=== PATIENT | male | born 1940 | race Caucasian/White ===

== ENCOUNTER 2024-07-14 12:49 | Observation (INO) ==
[2024-07-14] MEDS: Lactated Ringers 1000 ml BAG IV.FLUID IV ONE ×2 (13:15→16:23)
[2024-07-14] MEDS: Piperacillin/Tazobac 3.375 BAG 3.375 GM/100 ML BAG IV ONE (13:17)
[2024-07-14 13:36] LABS: Hematocrit 39.7 % (38-53); Hemoglobin 13.7 g/dL (13.2-16.3); Mean Corpuscular Hgb Conc 34.4 g/dL (31-36); Mean Corpuscular Volume 93.1 fL (80-97); Mean Platelet Volume 8.8 fL (7.5-11.2); Platelet Count 75 10^3/uL (150-450); Red Blood Count 4.27 10^6/uL (4.06-5.63); Red Cell Distribution Width 13.9 % (12-17); White Blood Count 6.1 10^3/uL (3.6-10.2)
[2024-07-14 13:53] LABS: Activated Partial Thrombo Time 29.4 seconds (26.0-38.0); INR 1.1 (0.85-1.14)
[2024-07-14 14:39] LABS: Albumin 3.4 g/dL (3.2-5.2); Albumin/Globulin Ratio 1.2 (1-3); C Reactive Protein 153.16 mg/L (<8.01); Creatinine, Serum 1.49 mg/dL (0.67-1.17); Globulin 2.8 g/dL (2-4); Potassium 4.1 mmol/L (3.5-5.0); Total Bilirubin 0.7 mg/dL (0.2-1.0); Total Protein 6.2 g/dL (6.4-8.9); eGFR CKD-EPI 46.9 (>60)
[2024-07-14 15:36] LABS: High Sensitivity Troponin 1 Hr 7 pg/mL (<20)
[2024-07-14 15:43] LABS: ABS Lymphocytes 2.6 10^3/uL (1.0-4.8); ABS Monocytes 0.3 10^3/uL (0.0-1.1); ABS Neutrophils 3.2 10^3/uL (1.5-7.6); ABS Nucleated RBC 0.02 10^3/ul; Lymphocyte % 41.9 %; Nucleated Red Blood Cells % 0.4 %/100WBC (0.0-0.8); RBC Morphology Normal (Normal)
[2024-07-14] MEDS: CALCIUM GLUCONATE 1GM/50ML NS 1 GM/50 ML BAG IV ONE (16:23)
[2024-07-14 16:38] LABS: RBC Parasite Smear No Parasites Seen (No Parasite)
[2024-07-14 16:48] LABS: TSH Ultra Thyroid Stim Horm 1.36 mcIU/mL (0.34-5.60)
[2024-07-14] MEDS: DOXYcycline 100 MG in NS 0.9% 250 ml 250 ML IVPB ONE (17:26)
[2024-07-14 18:13] LABS: Urine Appearance Clear; Urine Bilirubin Negative (Negative); Urine Blood 1+ (Negative); Urine Color Light-Yellow; Urine Glucose Negative (Negative); Urine Ketones Negative (Negative); Urine Nitrite Negative (Negative); Urine Protein Negative (Negative); Urine Specific Gravity 1.008 (1.002-1.030); Urine Urobilinogen Negative (Negative); Urine pH 5.5 (5.0-8.0)
[2024-07-14 18:14] LABS: Urine Bacteria Absent /HPF (Absent); Urine Red Blood Cell Trace(0-2/hpf) /HPF (0-Trace); Urine White Blood Cell Trace(0-5/hpf) /HPF (0-Trace)
[2024-07-15 02:43] LABS: Magnesium 1.9 mg/dL (1.9-2.7)
[2024-07-15] MEDS ORDERED: DOXYcycline 100 MG in NS 0.9% 250 ml 250 ML IVPB SCH (05:00)
[2024-07-15] MEDS: DOXYcycline 100 MG in NS 0.9% 250 ml 250 ML IVPB SCH (05:55)
[2024-07-15 08:02] LABS: Magnesium 1.8 mg/dL (1.9-2.7); Phosphorus 2.5 mg/dL (2.5-5.0)
[2024-07-15 08:03] LABS: Calcium 7.4 mg/dL (8.6-10.3); Creatinine, Serum 0.93 mg/dL (0.67-1.17); Potassium 4.1 mmol/L (3.5-5.0); eGFR CKD-EPI 82.5 (>60)
[2024-07-15 08:55] LABS: ABS Lymphocytes 3.6 10^3/uL (1.0-4.8); ABS Monocytes 0.3 10^3/uL (0.0-1.1); ABS Neutrophils 1.4 10^3/uL (1.5-7.6); ABS Nucleated RBC 0.01 10^3/ul; Eosinophil % 0.2 %; Giant Platelets Present; Hematocrit 34.3 % (38-53); Hemoglobin 12.1 g/dL (13.2-16.3); Lymphocyte % 67.5 %; Mean Corpuscular Hemoglobin 32.2 pg (27-33); Mean Corpuscular Hgb Conc 35.2 g/dL (31-36); Mean Corpuscular Volume 91.5 fL (80-97); Mean Platelet Volume 9.1 fL (7.5-11.2); Nucleated Red Blood Cells % 0.3 %/100WBC (0.0-0.8); Platelet Count 64 10^3/uL (150-450); RBC Morphology Normal (Normal); Red Blood Count 3.75 10^6/uL (4.06-5.63); White Blood Count 5.4 10^3/uL (3.6-10.2)
[2024-07-15 12:50] LABS: HIV 4th Generation Nonreactive (Nonreactive)
[2024-07-15] MEDS ORDERED: Sulfur Hexaflouride MICROSPHR 25 MG VIAL IV PRN (15:35)
[2024-07-15 17:25] LABS: High Sensitivity Troponin 1 Hr 6 pg/mL (<20)
[2024-07-15 19:19] LABS: High Sensitivity Troponin 3 Hr 5 pg/mL (<20)
[2024-07-15] MEDS: Iodixanol 320 (CONTRAST) 100 ML SDV IV ONE (19:47)
[2024-07-16 07:13] LABS: Hemoglobin 11.6 g/dL (13.2-16.3); Mean Corpuscular Hemoglobin 32.2 pg (27-33); Mean Corpuscular Volume 91.8 fL (80-97); Red Cell Distribution Width 14.4 % (12-17); White Blood Count 5.6 10^3/uL (3.6-10.2)
[2024-07-16 07:28] LABS: Calcium 7.3 mg/dL (8.6-10.3); Creatinine, Serum 0.95 mg/dL (0.67-1.17); Magnesium 1.8 mg/dL (1.9-2.7); Potassium 4.4 mmol/L (3.5-5.0); eGFR CKD-EPI 80.4 (>60)
[2024-07-16 09:35] LABS: Mean Platelet Volume 8.9 fL (7.5-11.2); Platelet Count 82 10^3/uL (150-450)
[2024-07-16 10:08] LABS: ABS Lymphocytes 3.7 10^3/uL (1.0-4.8); ABS Monocytes 0.5 10^3/uL (0.0-1.1); ABS Neutrophils 1.4 10^3/uL (1.5-7.6); ABS Nucleated RBC 0.01 10^3/ul; Eosinophil % 0.4 %; Lymphocyte % 65.2 %; Nucleated Red Blood Cells % 0.1 %/100WBC (0.0-0.8); RBC Morphology Normal (Normal)
[2024-07-16] MEDS: Magnesium Sulfate 2 gm BAG 2 GM/50 ML BAG IVPB ONE (11:50)
[2024-07-17 08:00] LABS: Hematocrit 35.4 % (38-53); Hemoglobin 12.4 g/dL (13.2-16.3); Mean Corpuscular Hemoglobin 32.1 pg (27-33); Mean Corpuscular Hgb Conc 34.9 g/dL (31-36); Mean Corpuscular Volume 91.8 fL (80-97); Platelet Count 124 10^3/uL (150-450); Red Blood Count 3.86 10^6/uL (4.06-5.63); Red Cell Distribution Width 14.3 % (12-17)
[2024-07-17 08:54] LABS: Calcium 7.7 mg/dL (8.6-10.3); Creatinine, Serum 1.01 mg/dL (0.67-1.17); Potassium 4.3 mmol/L (3.5-5.0); eGFR CKD-EPI 74.7 (>60)
[2024-07-17 09:48] LABS: ABS Lymphocytes 3.7 10^3/uL (1.0-4.8); ABS Monocytes 0.4 10^3/uL (0.0-1.1); ABS Neutrophils 1.8 10^3/uL (1.5-7.6); ABS Nucleated RBC 0.02 10^3/ul; Eosinophil % 0.6 %; Nucleated Red Blood Cells % 0.3 %/100WBC (0.0-0.8)
[2024-07-17 13:34] VITALS: BP 144/85
[2024-07-17 15:17] LABS: Anaplasma phagocytophilum Positive (Negative); B. miyamotoi PCR, B Negative (Negative); Babesia divergens/MO-1 Negative (Negative); Babesia ducani Negative (Negative); Ehrlichia chaffeensis Negative (Negative); Ehrlichia ewingii/canis Negative (Negative); Ehrlichia muris eauclairensis Negative (Negative)
== END 2024-07-17 14:30 | disposition home or self-care (01) ==
LOC: EDHOLD 12:49 → ED 12:49 → SUATTDRO 20:41 → MED 07-15 00:52
PROVIDERS: ADMIT Internal Medicine; ATTEND Internal Medicine